=== PATIENT | male | born 1955 | race Caucasian/White ===

== ENCOUNTER 2025-01-21 09:57 | Day surgery (SDC) | payer MEDICARE ==
[2025-01-20 09:03] VITALS: BMI 41.0
[~2025-01-21 09:57] MED LIST: HYDROmorphone 0.5 MG/0.5 ML SYRINGE IVP PRN; MIDAZOLAM 2 MG/2 ML VIAL IV PRN
[2025-01-21] MEDS: SODIUM CHLORIDE 0.9% 1,000 ML IV SCH (10:55)
[2025-01-21] MEDS: MIDAZOLAM 2 MG/2 ML VIAL IV ONE (11:00)
[2025-01-21] MEDS: IV FLUID CONTINUATION 1,000 ML IV ONE (11:08)
[2025-01-21 11:30] LABS: HCT 40.6 % (39.0-53.0); HGB 12.7 gm/dL (13.0-17.5); MCH 29.3 pg (25.0-35.0); MCHC 31.2 g/dL (31.0-37.0); Mean Platelet Volume 7.4; Platelet Count 185 k/uL (150-450); RBC 4.32 m/uL (4.30-5.90); WBC 4.7 k/uL (3.8-10.6)
[2025-01-21 11:31] LABS: ALT 52 U/L (4-49); AST 34 U/L (17-59); African American GFR (CKD) >90 (>60 ml/min/1.73 sqM); Albumin 3.7 g/dL (3.5-5.0); Alkaline Phosphatase 96 U/L (38-126); Anion Gap 8 mmol/L; Blood Urea Nitrogen 23 mg/dL (9-20); Calcium 8.7 mg/dL (8.4-10.2); Carbon Dioxide 28 mmol/L (22-30); Chloride 101 mmol/L (98-107); Glucose 91 mg/dL (74-99); Non-African American GFR(CKD) 86 (>60 ml/min/1.73 sqM); Sodium 137 mmol/L (137-145); Total Bilirubin 1.5 mg/dL (0.2-1.3); Total Protein 6.6 g/dL (6.3-8.2)
[2025-01-21] MEDS ORDERED: fentaNYL (PF) 50 MCG/ML 2 ML AMP ONE (11:42)
[2025-01-21] MEDS ORDERED: SUCCINYLCHOLINE CHLORIDE 200 MG/10 ML VIAL IV ONE (11:42)
[2025-01-21] MEDS ORDERED: ROCURONIUM 10 MG/ML (5 ML VIAL) IV ONE (11:42)
[2025-01-21] MEDS ORDERED: HEPARIN SODIUM,PORCINE 10,000 UNIT/ML 1 ML VIAL ONE (11:42)
[2025-01-21] MEDS ORDERED: DEXAMETHASONE SOD PHOSPHATE 10 MG/ML 1 ML VIAL ONE (11:42)
[2025-01-21] MEDS ORDERED: PROPOFOL 10 MG/ML 20 ML VIAL IV ONE (11:42)
[2025-01-21] MEDS ORDERED: ISOPROTERENOL 250 MCG/1.25 ML SYR IV ONE (11:42)
[2025-01-21] MEDS ORDERED: HEPARIN SODIUM,PORCINE 5,000 UNIT/ML 1 ML VIAL ONE (11:42)
[2025-01-21] MEDS: HEPARIN SODIUM,PORCINE (1 ML) 2,500 UNIT in SODIUM CHLORIDE 0.9% 250 ML IRRIGATION ONE (11:55)
[2025-01-21] MEDS: HEPARIN SODIUM,PORCINE 10,000 UNIT in SODIUM CHLORIDE 0.9% 1,000 ML IRRIGATION ONE (11:55)
[2025-01-21] MEDS: HEPARIN SOD,PORK IN 0.45% NACL 25,000 UNIT in 0.45% NACL 1 250ML.BAG IV ONE ×2 (11:56→12:30)
--- NOTE | 2025-01-21 12:12 | P.HPCAR ---
History of Present Illness This is Dr. Hernandez dictating an H/P on this patient The patient was interviewed and examined IMPRESSION / ASSESSMENT: Atrial fibrillation with RVR with associated CHF exacerbation History of viral pericarditis in 2022 Hypertension, dyslipidemia, obstructive sleep apnea Central obesity No significant coronary artery disease Preserved LV systolic function PLAN: Proceed with A-fib ablation. Heparin dose calculated Continue Eliquis Reduce dose of amiodarone to 100 mg p.o. daily for the next 1 month and then stop Continue other cardiac medications and follow-up with his primary trucking supervisor Dr. Enamorado postprocedure in 1 week HPI Patient has a history of atrial fibrillation with RVR. This was associated with CHF exacerbation he is asymptomatic at this He denies any fever chills cough or any pulmonary symptoms at this time No shortness of breath no chest pain No syncope No CHF exacerbation and rehospitalization in the last 2 weeks ROS: No fever chills or rigors, no cough, phlegm or expectoration, no nausea, vomiting or diarrhea, no hematuria, dysuria, no musculoskeletal complaints, no strokes or seizures, no skin lesions. EXAMINATION: Blood pressure 132/63 mmHg pulse rate in the 50s afebrile No JVD Central obesity Heart sounds normal and regular no murmurs Breath sounds are reduced bilaterally no rhonchi no crackles No lower extremity edema BMI 41.4 REVIEW OF LABS, ECG & MEDICAL DATA Hemoglobin 12.7, white count 4.7, platelet count 185,000 Sodium and potassium normal at 137 and 4.0 BUN 23 creatinine 0.9 ALT 52 TSH normal at 2.9 Physical Exam Vitals: Vital Signs Temp Pulse Resp BP Pulse Ox 01/21/25 10:40 98.7 F 58 L 18 132/63 96 Intake and Output 01/20/25 01/21/25 01/21/25 22:59 06:59 14:59 Intake Total 0 Balance 0 Intake: IV 0 Other: Weight 123.6 kg Past Medical History Past Medical History: GERD/Reflux, Sleep Apnea/CPAP/BIPAP Additional Past Medical History / Comment(s): See Dr. Hernandez's H&P. States has an irregular HR. History of Any Multi-Drug Resistant Organisms: None Reported Additional Past Surgical History / Comment(s): Surgery for Sleep apnea, Septoplasty Past Anesthesia/Blood Transfusion Reactions: No Reported Reaction Smoking Status: Never smoker - Past Family History Mother Family Medical History: No Reported History Physical Examination Vital Signs Temp Pulse Resp BP Pulse Ox 01/21/25 10:40 98.7 F 58 L 18 132/63 96 Intake and Output 01/20/25 01/21/25 01/21/25 22:59 06:59 14:59 Intake Total 0 Balance 0 Intake: IV 0 Other: Weight 123.6 kg Results 01/21/25 10:58 01/21/25 10:58 Cardiac Enzymes 01/21/25 Range/Units 10:58 AST 34 (17-59) U/L CBC 01/21/25 Range/Units 10:58 WBC 4.7 (3.8-10.6) k/uL RBC 4.32 (4.30-5.90) m/uL Hgb 12.7 L (13.0-17.5) gm/dL Hct 40.6 (39.0-53.0) % Plt Count 185 (150-450) k/uL Comprehensive Metabolic Panel 01/21/25 Range/Units 10:58 Sodium 137 (137-145) mmol/L Potassium 4.0 (3.5-5.1) mmol/L Chloride 101 (98-107) mmol/L Carbon Dioxide 28 (22-30) mmol/L BUN 23 H (9-20) mg/dL Creatinine 0.90 (0.66-1.25) mg/dL Glucose 91 (74-99) mg/dL Calcium 8.7 (8.4-10.2) mg/dL AST 34 (17-59) U/L ALT 52 H (4-49) U/L Alkaline Phosphatase 96 (38-126) U/L Total Protein 6.6 (6.3-8.2) g/dL Albumin 3.7 (3.5-5.0) g/dL Current Medications Generic Name Dose Route Start Last Admin Trade Name Freq PRN Reason Stop Dose Admin Hydromorphone HCl 0.5 mg 01/21/25 07:00 Hydromorphone 0.5 Mg/0.5 Ml Syringe IVP 01/21/25 23:00 Q5M PRN Phase 1 or 2 - Pain Control Sodium Chloride 1,000 mls @ 20 mls/hr 01/21/25 05:52 01/21/25 10:55 Saline 0.9% IV 02/20/25 05:51 20 mls/hr .Q24H SHRAVAN Administration Lactated Ringer's 1,000 mls @ 20 mls/hr 01/21/25 05:52 Lactated Ringers IV 02/20/25 05:51 .Q24H SHRAVAN Midazolam HCl 2 mg 01/21/25 07:00 Midazolam 2 Mg/2 Ml Vial IV 01/21/25 23:00 ONCE PRN Pre-Op Anxiety Intake and Output 01/20/25 01/21/25 01/21/25 22:59 06:59 14:59 Intake Total 0 Balance 0 Intake: IV 0 Other: Weight 123.6 kg Patient Weight 01/22/25 06:59 Weight 123.6 kg 01/21/25 10:58 01/21/25 10:58
[2025-01-21] MEDS: ROPIVACAINE 5MG/ML 20ML VIAL MISCELLANE ONE (12:37)
[2025-01-21] MEDS: LIDOCAINE 1% INJ 10MG/ML (20 ML MDV) SQ ONE ×2 (12:37)
[2025-01-21 13:46] LABS: Band Neutrophils % 2 %; Eosinophils # (M) 0.24 k/uL (0-0.7); Lymphocytes # (M) 0.71 k/uL (1.0-4.8); Monocytes # (M) 0.47 k/uL (0-1.0); Neutrophils % (M) 68 %; Nucleated Red Blood Cells 0 /100 WBC (0-0); Total Cells Counted 100
[2025-01-21 13:47] LABS: RBC Morphology Normal
--- NOTE | 2025-01-21 14:28 | P.PRLE ---
RE: Kalen Cotton Dear Dr. Fei Cotton underwent ablation for atrial fibrillation successfully. He tolerated the procedure well without any acute complications He will remain on uninterrupted Eliquis for the next 2 months. He may consider stopping his amiodarone after 4 weeks Thank you for entrusting me with the care of the patient Warm regards Sincerely Marcelino Hernandez
--- NOTE | 2025-01-21 14:31 | P.EPPROC ---
- EP Procedure Note Electrophysiology Procedure Note: PROCEDURE A. fib ablation DIAGNOSIS Persistent atrial fibrillation, symptomatic, refractory to therapy associated with diastolic heart failure with acute exacerbation RESULT No left atrial appendage mass seen on intracardiac echo Normal left atrial size Successful A. fib ablation/pulmonary vein isolation of all veins using cryo- ablation Complete entrance block in all 4 veins confirmed Left atrial septal ablation No evidence for phrenic nerve injury Esophageal deflection YES PROCEDURE DETAILS Written informed consent prior to procedure. Patient brought to the EP lab. General anesthesia given. Heparin administered. A city maintained above 300 seconds Both groins prepped and draped per protocol and venous sheaths placed. Esophagus intubated, circa catheter for temperature monitoring an endoscope for possible esophageal deflection. Phrenic nerve monitoring performed. Esophageal temperature monitoring performed. Esophageal deflection performed if circa catheter overlapping with the balloon or circa temperature less than 27.5C Intracardiac echocardiography performed. Pericardium evaluated. Left atrial appendage evaluated. Left atrium evaluated along with pulmonary veins Transseptal catheterization performed under fluoroscopic guidance and intracardiac echo guidance Cryoablation sheath exchanged, balloon catheter along with achieve catheter placed in the left atrium. Pulmonary veins isolated in the following sequence: Left superior pulmonary vein followed by left inferior pulmonary vein, followed by right inferior pulmonary vein and lastly right superior pulmonary vein. Phrenic nerve stimulation along with capture thresholds within the SVC and right superior pulmonary vein to identify the phrenic nerve proximity to the cryo- balloon. Pulmonary veins isolated and confirmed with entrance and exit block. Phrenic nerve integrity confirmed at the end of the procedure Ablation of the left atrial septum performed with cannulation of the superior branch of the right inferior and the inferior branch of the right superior vein to achieve ablation of the posterior septum of the left atrium. Ablation of electrograms confirmed Diagnostic catheters for the high right atrium, His bundle, coronary sinus placed. LA and RA pressures recorded LA pressure: Diagnostic EP study with coronary sinus pacing and recording Baseline measurements: Sinus cycle length 1070 ms, WI interval 241 ms, QRS 136 ms and QT interval 450 ms AH 103 ms and HV interval 35 ms Sinus node recovery times were 1353, 1385 and 1528 ms AV node Wenckebach block 520 ms High-dose Isopril employed Burst stimulation from the high right atrium from 400 ms down to 300 ms. No atrial fibrillation induced Venous sheaths were removed and hemostasis assured with a closure device. Patient extubated and transferred to recovery PROCEDURES PERFORMED Diagnostic EP study CS pacing and recording Left and right transseptal catheterization Catheter the mapping of the tachycardia Intracardiac echocardiography Pulmonary vein isolation with transseptal and comprehensive EPS, [id number] Drug infusion, +[id number] Linear ablation, left atrium, +[id number]
[2025-01-21] MEDS ORDERED: ACETAMINOPHEN TAB 325 MG TAB PO PRN (17:29)
[2025-01-21] MEDS: LACTATED RINGERS 1,000 ML IV SCH (19:55)
[2025-01-21] MEDS: APIXABAN 5 MG TAB PO SCH (19:56)
[2025-01-21] MEDS: ATORVASTATIN 40 MG TAB PO SCH (19:56)
[2025-01-22] MEDS: ACETAMINOPHEN IV (For NPO) 1,000 MG in EMPTY BAG 1 BAG IVPB ONE (04:40)
[2025-01-22] MEDS: PANTOPRAZOLE 40 MG TABLET PO SCH (06:13)
[2025-01-22 07:35] VITALS: BP 131/72; TEMP 97.8
[2025-01-22] MEDS: DAPAGLIFLOZIN PROPANEDIOL 5 MG TABLET PO SCH (07:43)
[2025-01-22] MEDS: FUROSEMIDE 40 MG TAB PO SCH (07:43)
[2025-01-22] MEDS: POTASSIUM CHLORIDE ER 20 MEQ TAB.ER PO SCH (07:43)
[2025-01-22] MEDS: METOPROLOL SUCCINATE (ER) 25 MG TAB.ER.24H PO SCH (07:43)
--- NOTE | 2025-01-22 09:20 | P.DS ---
Providers Date of admission: 01/21/25 Attending physician: Marcelino Hernandez Primary care physician: Paulina Chen MD Hospital Course: The patient is a 69-year-old male who follows with Dr. Acosta in [facility]. He was referred to Dr. Hernandez for atrial fibrillation management. It was recommended that he undergo cardiac ablation as his persistent atrial fibrillation has prompted diastolic heart failure. Successful pulmonary vein isolation performed yesterday with Dr. Hernandez. No atrial fibrillation induced at the end of procedure. Patient states he slept well overnight. He had some discomfort with stitch removal, but otherwise his bilateral groin sites are clean dry and intact. No chest pain or pressure. No difficulty breathing. GENERAL: Well-appearing, well-nourished and in no acute distress. NECK: Supple without JVD or thyromegaly. LUNGS: Breath sounds coarse to auscultation bilaterally. Respiration equal and unlabored. Bilateral rhonchi. HEART: Regular rate and rhythm without murmurs, rubs or gallops. S1 and S2 heard. EXTREMITIES: Normal range of motion, no edema. No clubbing or cyanosis. Peripheral pulses intact and strong. Bilateral groin sites are clean dry and intact TELEMETRY: Sinus rhythm overnight LABS: WBC 4.7, hemoglobin 12.7, hematocrit 40.6, platelet 185, sodium 137, potassium 4.0, BUN 23, creatinine 0.90, AST 34, ALT 52, TSH 2.85 IMPRESSION: Persistent atrial fibrillation Congestive heart failure, diastolic Morbid obesity PLAN: Continue current medication regimen Aggressive pulmonary hygiene Patient to be discharged with incentive spirometry Follow-up with primary school bus dispatcher Dr. Acosta in 1 week I am dictating on behalf of Dr Marcelino Hernandez's history/physical and assessment/plan. Plan - Discharge Summary Discharge Rx Participant: No New Discharge Prescriptions: No Action Acetaminophen Tab [Tylenol] 325 mg PO Q4H PRN PRN Reason: Pain Apixaban [Eliquis] 5 mg PO BID Amiodarone [Cordarone] 200 mg PO DAILY Metoprolol Succinate [Metoprolol Succinate ER] 25 mg PO DAILY Empagliflozin [Jardiance] 10 mg PO DAILY Potassium Chloride ER [K-Dur 20] 20 meq PO DAILY Furosemide [Lasix] 40 mg PO DAILY Selegiline HCl [Eldepryl] 5 mg PO HS Omeprazole 20 mg PO DAILY Atorvastatin [Lipitor] 40 mg PO HS Discharge Medication List Acetaminophen Tab [Tylenol] 325 mg PO Q4H PRN 01/20/25 [History] Amiodarone [Cordarone] 200 mg PO DAILY 01/20/25 [History] Apixaban [Eliquis] 5 mg PO BID 01/20/25 [History] Atorvastatin [Lipitor] 40 mg PO HS 01/20/25 [History] Empagliflozin [Jardiance] 10 mg PO DAILY 01/20/25 [History] Furosemide [Lasix] 40 mg PO DAILY 01/20/25 [History] Metoprolol Succinate [Metoprolol Succinate ER] 25 mg PO DAILY 01/20/25 [History] Omeprazole 20 mg PO DAILY 01/20/25 [History] Potassium Chloride ER [K-Dur 20] 20 meq PO DAILY 01/20/25 [History] Selegiline HCl [Eldepryl] 5 mg PO HS 01/20/25 [History] Follow up Appointment(s)/Referral(s): Marcelino Hernandez MD [STAFF PHYSICIAN] - (Follow-up with primary school bus dispatcher dr Enamorado in 1 week) Activity/Diet/Wound Care/Special Instructions: Post EP study - Ablation instructions 1. Keep access sites dry for 2 days. 2. No heavy lifting or straining for 2 days. 3. Avoid bending the hips repeatedly for 2 days. 4. You may go up and down stairs slowly 5. If you have had an ablation for atrial fibrillation or atrial flutter and are on a blood thinner, do not stop the blood thinner even temporarily for 3 months post ablation Call if the following is noted 1. Bleeding, increasing swelling or pain at the access sites. 2. Increasing chest discomfort, especially upon taking a deep breath. 3. Increasing shortness of breath, at rest or with exertion. 4. Undue cough / phlegm 5. Difficulty or pain while swallowing. 6. Pain or change in color in the extremities. 7. Fever, chills, rigors. 8. Increasing headache or neurologic symptoms. 9. Dizziness, fainting, palpitations For patients who have undergone an A-fib ablation /atrial flutter ablation Strict instruction; do NOT stop anticoagulation (Eliquis/Xarelto/Pradaxa) for the next 2 months temporarily, for any elective, nonurgent surgery. This increases the risk of stroke, post A-fib ablation Follow-up with Dr. Enamorado Discharge Disposition: HOME SELF-CARE
[2025-01-22] MEDS: ALBUTEROL NEBULIZED 2.5 MG/3 ML INHALATION STA (09:48)
[2025-01-22 09:53] VITALS: RESP 16
[2025-01-22 09:58] VITALS: PULSE 55
== END 2025-01-22 11:46 | disposition home or self-care (01) ==
LOC: CATHEP 09:57 → 6NMEDSUR 17:34 → CATHEP 01-22 11:46
PROVIDERS: ATTEND Internal Medicine Clinical Cardiac Electrophysiology
DX: I25.10 Atherosclerotic heart disease of native coronary artery without angina pectoris (principal); I48.19 Other persistent atrial fibrillation; I11.0 Hypertensive heart disease with heart failure; I50.33 Acute on chronic diastolic (congestive) heart failure; K21.9 Gastro-esophageal reflux disease without esophagitis; E78.5 Hyperlipidemia, unspecified; E66.01 Morbid (severe) obesity due to excess calories; G47.33 Obstructive sleep apnea (adult) (pediatric); Z68.41 Body mass index [BMI] 40.0-44.9, adult; Z79.1 Long term (current) use of non-steroidal anti-inflammatories (NSAID); Z79.01 Long term (current) use of anticoagulants; Z79.82 Long term (current) use of aspirin; Z79.899 Other long term (current) drug therapy
CPT/HCPCS: 94640; 93623; 93656; 93657; 86900; 86901; 80053; 84443; 85025; 86850; J2250; J0330; J1644 ×3; J1100; J2003; J3010; J2704